=== PATIENT | female | born 1965 | race Caucasian/White ===

== ENCOUNTER 2017-02-17 11:28 | Emergency (ER) | payer MEDICARE ==
[~2017-02-17] VITALS: Ht 165.1 cm; Wt 58.2 kg
[~2017-02-17 11:28] MED LIST: OLAN5TAB2 PO
[2017-02-17 11:50] VITALS: BP 146/89
[2017-02-17] MEDS ORDERED: MIRT30 PO (11:59)
[2017-02-17] MEDS ORDERED: NICO-650 TD (11:59)
[2017-02-17] MEDS ORDERED: ARIP10TA8 PO (11:59)
[2017-02-17] MEDS ORDERED: GABA-531 PO (12:00)
[2017-02-17] MEDS ORDERED: ALBU8HFA IH (12:00)
[2017-02-17 12:36] LABS: EOSINOPHILS % (AUTO) 7.6 % (1.0-6.0); HEMATOCRIT 42.9 % (36-46); HEMOGLOBIN 14.5 g/dL (12.0-16.0); LYMPHOCYTES # (AUTO) 2.7 K/uL (1.0-4.8); LYMPHOCYTES % (AUTO) 27.4 % (22.0-44.0); MEAN CORPUSCULAR HEMOGLOBIN 29.4 pg (26.0-34.0); MEAN CORPUSCULAR HGB CONC 33.8 G/dL (31.0-37.0); MEAN CORPUSCULAR VOLUME 87 fL (80-100); MONOCYTES # (AUTO) 0.6 K/uL (0.1-1.0); MONOCYTES % (AUTO) 5.8 % (2.0-9.0); NEUTROPHILS # (AUTO) 5.8 K/uL (1.8-7.7); NEUTROPHILS % (AUTO) 58.2 % (40.0-70.0); PLATELET COUNT (AUTO) 334 K/uL (150-450); RED BLOOD CELL COUNT(AUTO) 4.93 MIL/uL (4.00-5.20); RED CELL DISTRIBUTION WIDTH 12.4 % (11.5-14.5); WHITE BLOOD COUNT (AUTO) 9.9 K/uL (4.5-11.0)
[2017-02-17 13:00] LABS: ALANINE AMINOTRANSFERASE 24 U/L (12-78); ALBUMIN 3.8 g/dL (3.4-5.0); ASPARTATE AMINOTRANSFERASE 20 U/L (15-37); BILIRUBIN,TOTAL 0.9 mg/dL (0.1-1.0); CALCIUM, TOTAL 8.8 mg/dL (8.8-10.5); CARBON DIOXIDE 28 mmol/L (22-29); CREATININE 0.84 mg/dL (0.60-1.30); GLOMERULAR FILTR. RATE CALC > 60 mL/min (>60); TOTAL PROTEIN, SERUM 7.1 g/dL (6.4-8.2); UREA NITROGEN, BLOOD 11 mg/dL (7-18)
[2017-02-17] MEDS ORDERED: ONDANSETRON HCL 4 MG TABLET PO ONE (13:00)
[2017-02-17 13:14] LABS: ANION GAP 10 mmol/L (8-16); CHLORIDE 103 mmol/L (98-107); POTASSIUM 3.7 mmol/L (3.5-5.1); SODIUM SERUM 141 mmol/L (136-145)
[2017-02-17] MEDS ORDERED: HALOPERIDOL 5 MG TABLET PO ONE (13:45)
[2017-02-17] MEDS ORDERED: LORazepam 2 MG TABLET PO ONE (13:45)
== END 2017-02-17 14:15 | disposition home or self-care (01) ==
LOC: EMS 11:29 → EEVIPCON 11:29 → EMS 14:15
DX: F29 Unspecified psychosis not due to a substance or known physiological condition (principal); F41.9 Anxiety disorder, unspecified; F15.10 Other stimulant abuse, uncomplicated; F32.9 Major depressive disorder, single episode, unspecified; F60.3 Borderline personality disorder; F17.210 Nicotine dependence, cigarettes, uncomplicated; F10.20 Alcohol dependence, uncomplicated
CPT/HCPCS: 36415; 80053; 80307; 85025; 99284; G0480; Q0162

== ENCOUNTER 2017-02-19 00:31 | Emergency (ER) | payer MEDICARE ==
[~2017-02-19] VITALS: Ht 162.6 cm; Wt 59.1 kg
[~2017-02-19 00:31] MED LIST changes: +ALBU8HFA IH; +ARIP10TA8 PO; +GABA-531 PO; +MIRT30 PO; +NICO-650 TD
[2017-02-19 00:36] VITALS: BP 140/89
== END 2017-02-19 03:30 | disposition left against medical advice (07) ==
LOC: EMS 00:33
DX: Z00.8 Encounter for other general examination (principal); F32.9 Major depressive disorder, single episode, unspecified; F17.210 Nicotine dependence, cigarettes, uncomplicated; F14.90 Cocaine use, unspecified, uncomplicated; F19.90 Other psychoactive substance use, unspecified, uncomplicated; Z53.21 Procedure and treatment not carried out due to patient leaving prior to being seen by health care provider

== ENCOUNTER 2017-02-19 04:15 | Emergency (ER) | payer MEDICARE ==
[~2017-02-19] VITALS: Ht 165.1 cm; Wt 63.0 kg
[2017-02-19] MEDS ORDERED: ALBUTEROL SULFATE 2.5 MG/0.5 ML NEB SOLUTION NEB ONE (05:15)
[2017-02-19 05:50] VITALS: BP 129/67
== END 2017-02-19 06:20 | disposition home or self-care (01) ==
LOC: EMS 04:16
DX: R06.2 Wheezing (principal); F17.200 Nicotine dependence, unspecified, uncomplicated; F15.10 Other stimulant abuse, uncomplicated; F14.10 Cocaine abuse, uncomplicated; F32.9 Major depressive disorder, single episode, unspecified; F60.3 Borderline personality disorder
CPT/HCPCS: 94640; 99283

== ENCOUNTER 2017-02-22 11:46 | Emergency (ER) | payer MEDICARE ==
[~2017-02-22] VITALS: Ht 160 cm; Wt 60.5 kg
[2017-02-22 12:41] LABS: BASOPHILS # (AUTO) 0.03 K/uL (0.00-0.20); BASOPHILS % (AUTO) 0.4 % (0.0-2.0); EOSINOPHILS # (AUTO) 0.26 K/uL (0.00-0.70); EOSINOPHILS % (AUTO) 2.82 % (1.0-6.0); HEMATOCRIT 38.5 % (36-46); HEMOGLOBIN 13.2 g/dL (12.0-16.0); LYMPHOCYTES % (AUTO) 22.2 % (22.0-44.0); MEAN CORPUSCULAR HEMOGLOBIN 29.5 pg (26.0-34.0); MEAN CORPUSCULAR HGB CONC 34.2 G/dL (31.0-37.0); MEAN CORPUSCULAR VOLUME 86 fL (80-100); MONOCYTES # (AUTO) 0.3 K/uL (0.1-1.0); MONOCYTES % (AUTO) 3.7 % (2.0-9.0); NEUTROPHILS # (AUTO) 6.4 K/uL (1.8-7.7); PLATELET COUNT (AUTO) 337 K/uL (150-450); RED BLOOD CELL COUNT(AUTO) 4.47 MIL/uL (4.00-5.20); RED CELL DISTRIBUTION WIDTH 12.3 % (11.5-14.5); WHITE BLOOD COUNT (AUTO) 9.1 K/uL (4.5-11.0)
[2017-02-22 12:45] LABS: ANION GAP 10 mmol/L (8-16); CALCIUM, TOTAL 8.9 mg/dL (8.8-10.5); CARBON DIOXIDE 27 mmol/L (22-29); CHLORIDE 104 mmol/L (98-107); GLOMERULAR FILTR. RATE CALC > 60 mL/min (>60); POTASSIUM 3.5 mmol/L (3.5-5.1); SODIUM SERUM 141 mmol/L (136-145); UREA NITROGEN, BLOOD 6 mg/dL (7-18)
[2017-02-22 12:50] LABS: ALANINE AMINOTRANSFERASE 34 U/L (12-78); ALBUMIN 3.8 g/dL (3.4-5.0); ASPARTATE AMINOTRANSFERASE 35 U/L (15-37); BILIRUBIN,TOTAL 0.9 mg/dL (0.1-1.0); TOTAL PROTEIN, SERUM 7.2 g/dL (6.4-8.2)
[2017-02-22 14:41] VITALS: BP 131/87
== END 2017-02-22 14:42 | disposition home or self-care (01) ==
LOC: EMS 11:47
DX: F25.9 Schizoaffective disorder, unspecified (principal); F32.9 Major depressive disorder, single episode, unspecified; F19.90 Other psychoactive substance use, unspecified, uncomplicated; F14.90 Cocaine use, unspecified, uncomplicated; F17.210 Nicotine dependence, cigarettes, uncomplicated
CPT/HCPCS: 36415; 80053; 80307; 85025; 99285; G0480

== ENCOUNTER 2017-02-26 07:14 | Emergency (ER) | payer MEDICARE ==
[~2017-02-26] VITALS: Ht 157.5 cm; Wt 58.2 kg
[2017-02-26] MEDS ORDERED: 0.9% SODIUM CHLORIDE 5 ML NEB SOLUTION NEB ONE (07:27)
[2017-02-26] MEDS ORDERED: ALBUTEROL SULFATE 5 MG/ML 20 ML NEB SOLN [BULK] NEB ONE (07:30)
[2017-02-26] MEDS ORDERED: DEXAMETHASONE SOD PHOS 4 MG/ML 5 ML VIAL IM ONE (07:30)
[2017-02-26] MEDS ORDERED: IPRATROPIUM BROMIDE 0.5 MG/2.5 ML NEB SOLUTION NEB ONE (07:30)
[2017-02-26 09:11] VITALS: BP 130/56
== END 2017-02-26 09:12 | disposition home or self-care (01) ==
LOC: EMS 07:16
DX: J45.909 Unspecified asthma, uncomplicated (principal); F32.9 Major depressive disorder, single episode, unspecified; F41.9 Anxiety disorder, unspecified; F60.3 Borderline personality disorder; F17.210 Nicotine dependence, cigarettes, uncomplicated; F14.10 Cocaine abuse, uncomplicated; F15.10 Other stimulant abuse, uncomplicated; Z59.0 Homelessness
CPT/HCPCS: 94644; 96372; 99285; 99406; J1100

== ENCOUNTER 2017-03-26 14:02 | Inpatient (IN) | payer MEDICARE ==
[~2017-03-26] VITALS: Ht 162.6 cm; Wt 126.0 kg
[2017-03-26 14:42] LABS: BASOPHILS # (AUTO) 0.16 K/uL (0.00-0.20); BASOPHILS % (AUTO) 1.7 % (0.0-2.0); EOSINOPHILS # (AUTO) 0.82 K/uL (0.00-0.70); EOSINOPHILS % (AUTO) 8.32 % (1.0-6.0); HEMATOCRIT 43.7 % (36-46); HEMOGLOBIN 14.6 g/dL (12.0-16.0); LYMPHOCYTES # (AUTO) 2.2 K/uL (1.0-4.8); LYMPHOCYTES % (AUTO) 22.2 % (22.0-44.0); MEAN CORPUSCULAR HEMOGLOBIN 29.4 pg (26.0-34.0); MEAN CORPUSCULAR HGB CONC 33.5 G/dL (31.0-37.0); MEAN CORPUSCULAR VOLUME 88 fL (80-100); MONOCYTES # (AUTO) 0.6 K/uL (0.1-1.0); MONOCYTES % (AUTO) 6.3 % (2.0-9.0); NEUTROPHILS # (AUTO) 6.1 K/uL (1.8-7.7); NEUTROPHILS % (AUTO) 61.6 % (40.0-70.0); PLATELET COUNT (AUTO) 436 K/uL (150-450); RED BLOOD CELL COUNT(AUTO) 4.98 MIL/uL (4.00-5.20)
[2017-03-26] MEDS ORDERED: LORazepam 2 MG/ML VIAL IM ONE (14:45)
[2017-03-26] MEDS ORDERED: DiphenhydrAMINE HCL 50 MG/ML VIAL IM ONE (14:45)
[2017-03-26] MEDS ORDERED: HALOPERIDOL LACTATE 5 MG/ML VIAL IM ONE (14:45)
[2017-03-26 14:58] LABS: ALANINE AMINOTRANSFERASE 20 U/L (12-78); ALBUMIN 3.8 g/dL (3.4-5.0); ALKALINE PHOSPHATASE 118 U/L (46-116); ANION GAP 12 mmol/L (8-16); ASPARTATE AMINOTRANSFERASE 15 U/L (15-37); BILIRUBIN,TOTAL 0.9 mg/dL (0.1-1.0); CALCIUM, TOTAL 9.5 mg/dL (8.8-10.5); CHLORIDE 105 mmol/L (98-107); GLOMERULAR FILTR. RATE CALC > 60 mL/min (>60); GLUCOSE,RANDOM 113 mg/dL (70-110); POTASSIUM 3.8 mmol/L (3.5-5.1); SODIUM SERUM 143 mmol/L (136-145); TOTAL PROTEIN, SERUM 7.5 g/dL (6.4-8.2); UREA NITROGEN, BLOOD 12 mg/dL (7-18)
[2017-03-26 15:12] LABS: CARBON DIOXIDE 25 mmol/L (22-29)
[2017-03-26] MEDS ORDERED: MAG HYDROX/AL HYDROX/SIMETH ES 30 ML SUSPENSION UDCUP PO PRN (15:45)
[2017-03-26] MEDS ORDERED: MAGNESIUM HYDROXIDE SUSPENSION 30 ML UDCUP PO PRN (15:45)
[2017-03-26] MEDS ORDERED: LOPERAMIDE HCL 2 MG CAPSULE PO PRN (15:45)
[2017-03-26] MEDS ORDERED: ZOLPIDEM TARTRATE 10 MG TABLET PO PRN (15:45)
[2017-03-27 04:45] LABS: CHOL/HDL RATIO 2.5 (3.9-5.7); CHOLESTEROL 148 mg/dL (131-200); HDL CHOLESTEROL 59 mg/dL (40-60); LDL CHOL (CALC.) 75 mg/dL (0-130); TRIGLYCERIDES 71 mg/dL (15-150)
[2017-03-27 17:22] VITALS: BP 100/62
[2017-03-27 17:27] VITALS: BP 100/62
[2017-03-27] MEDS: LORazepam 2 MG TABLET PO PRN (17:59)
[2017-03-27] MEDS ORDERED: INFLUENZA VIRUS VACCINE QVS 2017-18 (3YR+)/PF 60 MCG/0.5 ML SYRINGE IM ONE (18:45)
[2017-03-28 04:05] VITALS: BP 100/66
[2017-03-28] MEDS: LORazepam 2 MG TABLET PO PRN ×2 (08:07→16:38)
[2017-03-28 08:30] VITALS: BP 126/71
[2017-03-28 08:35] LABS: CHOL/HDL RATIO 2.7 (3.9-5.7); FREE T4 (FREE THYROXINE) 0.83 ng/dL (0.76-1.46); THYROID STIMULATING HORMONE 0.41 uIU/mL (0.36-3.74)
[2017-03-28 08:40] LABS: HEMOGLOBIN A1C 5.6 % (4.5-6.2)
[2017-03-28] MEDS: NICOTINE 14 MG/24 HOUR PATCH TD SCH (09:13)
[2017-03-28] MEDS: ARIPiprazole 10 MG TABLET PO SCH (10:57)
[2017-03-28] MEDS: GABAPENTIN 300 MG CAPSULE PO SCH ×2 (13:06→16:37)
[2017-03-28] MEDS: HALOPERIDOL 5 MG TABLET PO PRN (16:38)
[2017-03-28] MEDS: MIRTAZAPINE 15 MG TABLET PO SCH (20:57)
[2017-03-29] MEDS: GABAPENTIN 300 MG CAPSULE PO SCH ×3 (08:36→16:25)
[2017-03-29] MEDS: ARIPiprazole 10 MG TABLET PO SCH (08:36)
[2017-03-29] MEDS: NICOTINE 14 MG/24 HOUR PATCH TD SCH (08:36)
[2017-03-29 16:00] VITALS: BP 111/72
[2017-03-29] MEDS: MIRTAZAPINE 15 MG TABLET PO SCH (20:10)
[2017-03-30 06:28] VITALS: BP 108/66
[2017-03-30 08:00] VITALS: BP 110/70
[2017-03-30] MEDS: GABAPENTIN 300 MG CAPSULE PO SCH ×3 (08:57→16:49)
[2017-03-30] MEDS: ARIPiprazole 15 MG TABLET PO SCH (08:57)
[2017-03-30] MEDS: NICOTINE 14 MG/24 HOUR PATCH TD SCH (09:03)
[2017-03-30 16:14] VITALS: BP 125/75
[2017-03-30] MEDS: MIRTAZAPINE 15 MG TABLET PO SCH (20:21)
[2017-03-31 05:35] VITALS: BP 121/62
[2017-03-31] MEDS: ARIPiprazole 15 MG TABLET PO SCH (08:22)
[2017-03-31] MEDS: NICOTINE 14 MG/24 HOUR PATCH TD SCH (08:22)
[2017-03-31] MEDS: GABAPENTIN 300 MG CAPSULE PO SCH ×3 (08:22→16:38)
[2017-03-31 08:30] VITALS: BP 119/73
[2017-03-31] MEDS ORDERED: ALBUTEROL SULFATE HFA 90 MCG/PUFF 8 GM INHALER IH PRN (09:30)
[2017-03-31] MEDS: LORazepam 2 MG TABLET PO PRN (10:18)
[2017-03-31 16:19] VITALS: BP 112/68
[2017-03-31] MEDS: MIRTAZAPINE 15 MG TABLET PO SCH (20:22)
[2017-04-01 06:36] VITALS: BP 122/77
[2017-04-01] MEDS: GABAPENTIN 300 MG CAPSULE PO SCH ×3 (08:37→16:30)
[2017-04-01] MEDS: ARIPiprazole 15 MG TABLET PO SCH (08:37)
[2017-04-01] MEDS: NICOTINE 14 MG/24 HOUR PATCH TD SCH (08:37)
[2017-04-01] MEDS: ACETAMINOPHEN 325 MG TABLET PO PRN ×2 (13:18→19:27)
[2017-04-01 13:19] VITALS: BP 120/70
[2017-04-01 16:29] VITALS: BP 113/65
[2017-04-01] MEDS: HALOPERIDOL 5 MG TABLET PO PRN (19:26)
[2017-04-01 19:27] VITALS: BP 120/70
[2017-04-01] MEDS: MIRTAZAPINE 15 MG TABLET PO SCH (20:23)
[2017-04-02 05:51] VITALS: BP 112/70
[2017-04-02] MEDS: ACETAMINOPHEN 325 MG TABLET PO PRN (05:54)
[2017-04-02 08:10] VITALS: BP 120/76
[2017-04-02] MEDS: ARIPiprazole 15 MG TABLET PO SCH (08:28)
[2017-04-02] MEDS: NICOTINE 14 MG/24 HOUR PATCH TD SCH (08:28)
[2017-04-02] MEDS: GABAPENTIN 300 MG CAPSULE PO SCH ×3 (08:28→16:48)
[2017-04-02 08:51] LABS: AMPHET/METH SCREEN,URINE NEGATIVE (NEGATIVE); BARBITURATE SCREEN, URINE NEGATIVE (NEGATIVE); BENZODIAZEPINES SCREEN,URINE NEGATIVE (NEGATIVE); CANNABINOID SCREEN,URINE NEGATIVE (NEGATIVE); COCAINE SCREEN,URINE NEGATIVE (NEGATIVE); METHADONE SCREEN, URINE NEGATIVE (NEGATIVE); OPIATE SCREEN,URINE NEGATIVE (NEGATIVE); PHENCYCLIDINE SCREEN,URINE NEGATIVE (NEGATIVE)
[2017-04-02 10:19] LABS: APPEARANCE,URINE CLEAR (CLEAR); BILIRUBIN,URINE NEGATIVE (NEGATIVE); GLUCOSE, URINE (UA) NEGATIVE (NEGATIVE); KETONES,URINE NEGATIVE (NEGATIVE); LEUKOCYTE ESTERASE ,URINE NEGATIVE (NEGATIVE); NITRATE,URINE NEGATIVE (NEGATIVE); OCCULT BLOOD,URINE NEGATIVE (NEGATIVE); PH,URINE 5.5 (5.0-8.0); PROTEIN,URINE NEGATIVE (NEGATIVE); UROBILINOGEN,URINE 0.2 mg/dL (<=1.0)
[2017-04-02] MEDS: LORazepam 2 MG TABLET PO PRN (12:41)
[2017-04-02 16:10] VITALS: BP 120/84
[2017-04-02] MEDS: HALOPERIDOL 5 MG TABLET PO PRN (20:09)
[2017-04-02] MEDS: MIRTAZAPINE 15 MG TABLET PO SCH (20:09)
[2017-04-03 06:32] VITALS: BP 119/68
[2017-04-03 08:19] VITALS: BP 107/57
[2017-04-03] MEDS: GABAPENTIN 300 MG CAPSULE PO SCH ×3 (08:55→16:19)
[2017-04-03] MEDS: ARIPiprazole 15 MG TABLET PO SCH (08:55)
[2017-04-03] MEDS: NICOTINE 14 MG/24 HOUR PATCH TD SCH (08:55)
[2017-04-03] MEDS ORDERED: BISACODYL 5 MG EC TABLET PO PRN (10:00)
[2017-04-03 16:11] VITALS: BP 123/88
[2017-04-03] MEDS: MIRTAZAPINE 15 MG TABLET PO SCH (20:10)
[2017-04-04 06:59] VITALS: BP 110/72
[2017-04-04] MEDS: GABAPENTIN 300 MG CAPSULE PO SCH ×3 (08:26→16:10)
[2017-04-04] MEDS: ARIPiprazole 15 MG TABLET PO SCH (08:26)
[2017-04-04 08:27] VITALS: BP 111/77
[2017-04-04] MEDS: NICOTINE 14 MG/24 HOUR PATCH TD SCH (08:27)
[2017-04-04] MEDS: LORazepam 2 MG TABLET PO PRN (09:01)
[2017-04-04 09:52] VITALS: BP 116/75
[2017-04-04] MEDS ORDERED: PERMETHRIN 1% 60 ML LOTION TP ONE (13:00)
[2017-04-04] MEDS: MIRTAZAPINE 15 MG TABLET PO SCH (20:07)
[2017-04-05 07:08] VITALS: BP 115/72
[2017-04-05] MEDS: NICOTINE 14 MG/24 HOUR PATCH TD SCH (09:14)
[2017-04-05] MEDS: ARIPiprazole 15 MG TABLET PO SCH (09:14)
[2017-04-05] MEDS: GABAPENTIN 300 MG CAPSULE PO SCH ×3 (09:14→16:01)
[2017-04-05] MEDS ORDERED: IVERMECTIN 3 MG TABLET PO ONE (10:30)
[2017-04-05] MEDS: LORazepam 2 MG TABLET PO PRN (10:39)
[2017-04-05] MEDS: HALOPERIDOL 5 MG TABLET PO PRN (20:02)
[2017-04-05] MEDS: MIRTAZAPINE 15 MG TABLET PO SCH (20:02)
[2017-04-06] MEDS: HALOPERIDOL 5 MG TABLET PO PRN (08:12)
[2017-04-06] MEDS: ARIPiprazole 15 MG TABLET PO SCH (08:12)
[2017-04-06] MEDS: NICOTINE 14 MG/24 HOUR PATCH TD SCH (08:12)
[2017-04-06] MEDS: GABAPENTIN 300 MG CAPSULE PO SCH ×3 (08:12→16:15)
[2017-04-06] MEDS: LORazepam 2 MG TABLET PO PRN ×2 (08:12→16:57)
[2017-04-06] MEDS: MIRTAZAPINE 15 MG TABLET PO SCH (20:10)
[2017-04-06] MEDS: ZOLPIDEM TARTRATE 10 MG TABLET PO PRN (20:10)
[2017-04-07 08:11] VITALS: BP 113/53
[2017-04-07] MEDS: ARIPiprazole 15 MG TABLET PO SCH (08:36)
[2017-04-07] MEDS: GABAPENTIN 300 MG CAPSULE PO SCH ×3 (08:36→16:48)
[2017-04-07] MEDS: NICOTINE 14 MG/24 HOUR PATCH TD SCH (08:37)
[2017-04-07] MEDS ORDERED: HALOPERIDOL LACTATE 5 MG/ML VIAL IM ONE (09:15)
[2017-04-07] MEDS ORDERED: DiphenhydrAMINE HCL 50 MG/ML VIAL IM ONE (09:15)
[2017-04-07] MEDS ORDERED: LORazepam 2 MG/ML VIAL IM ONE (09:15)
[2017-04-07] MEDS ORDERED: LORazepam 2 MG/ML VIAL ONE (09:16)
[2017-04-07] MEDS ORDERED: HALOPERIDOL LACTATE 5 MG/ML VIAL ONE (09:16)
[2017-04-07] MEDS ORDERED: DiphenhydrAMINE HCL 50 MG/ML VIAL ONE (09:16)
[2017-04-07] MEDS: HALOPERIDOL 5 MG TABLET PO PRN (16:48)
[2017-04-07] MEDS: LORazepam 2 MG TABLET PO PRN (16:48)
[2017-04-07] MEDS: MIRTAZAPINE 15 MG TABLET PO SCH (20:38)
[2017-04-08] MEDS: ARIPiprazole 15 MG TABLET PO SCH (08:01)
[2017-04-08] MEDS: NICOTINE 14 MG/24 HOUR PATCH TD SCH (08:01)
[2017-04-08] MEDS: GABAPENTIN 300 MG CAPSULE PO SCH ×3 (08:01→16:38)
[2017-04-08 08:35] VITALS: BP 110/70
[2017-04-08 16:00] VITALS: BP 141/71
[2017-04-08] MEDS: LORazepam 2 MG TABLET PO PRN (16:38)
[2017-04-08] MEDS: HALOPERIDOL 5 MG TABLET PO PRN (16:38)
[2017-04-08] MEDS: MIRTAZAPINE 15 MG TABLET PO SCH (20:10)
[2017-04-08] MEDS: ZOLPIDEM TARTRATE 10 MG TABLET PO PRN (20:10)
[2017-04-09] MEDS: NICOTINE 14 MG/24 HOUR PATCH TD SCH (08:25)
[2017-04-09] MEDS: LORazepam 2 MG TABLET PO PRN ×2 (08:25→16:07)
[2017-04-09] MEDS: ARIPiprazole 15 MG TABLET PO SCH (08:25)
[2017-04-09] MEDS: HALOPERIDOL 5 MG TABLET PO PRN ×2 (08:25→16:23)
[2017-04-09] MEDS: GABAPENTIN 300 MG CAPSULE PO SCH ×3 (08:25→16:07)
[2017-04-09 09:03] VITALS: BP 110/70
[2017-04-09 16:29] VITALS: BP 107/65
[2017-04-09] MEDS: MIRTAZAPINE 15 MG TABLET PO SCH (20:00)
[2017-04-09] MEDS: ZOLPIDEM TARTRATE 10 MG TABLET PO PRN (21:01)
[2017-04-10 06:55] VITALS: BP 100/62
[2017-04-10] MEDS: LORazepam 2 MG TABLET PO PRN (08:12)
[2017-04-10] MEDS: ARIPiprazole 15 MG TABLET PO SCH (08:13)
[2017-04-10] MEDS: NICOTINE 14 MG/24 HOUR PATCH TD SCH (08:13)
[2017-04-10 08:17] VITALS: BP 115/72
[2017-04-10] MEDS ORDERED: GABAPENTIN 300 MG CAPSULE PO SCH (09:00)
== END 2017-04-10 10:15 | disposition home or self-care (01) | DRG 885 ==
LOC: EMS 14:04 → B3A 03-27 16:07
PROVIDERS: ADMIT Psychiatry & Neurology Child & Adolescent Psychiatry; ATTEND Psychiatry & Neurology Child & Adolescent Psychiatry
DX: F25.0 Schizoaffective disorder, bipolar type (principal); R45.851 Suicidal ideations; G62.9 Polyneuropathy, unspecified; F10.20 Alcohol dependence, uncomplicated; B85.2 Pediculosis, unspecified; F10.21 Alcohol dependence, in remission; F19.20 Other psychoactive substance dependence, uncomplicated; F60.3 Borderline personality disorder; J44.9 Chronic obstructive pulmonary disease, unspecified; F14.90 Cocaine use, unspecified, uncomplicated; F17.210 Nicotine dependence, cigarettes, uncomplicated; F12.90 Cannabis use, unspecified, uncomplicated; F15.90 Other stimulant use, unspecified, uncomplicated; R73.9 Hyperglycemia, unspecified; K59.00 Constipation, unspecified; F41.9 Anxiety disorder, unspecified; L29.9 Pruritus, unspecified; Z28.21 Immunization not carried out because of patient refusal; Z79.899 Other long term (current) drug therapy; Z59.0 Homelessness; Z82.49 Family history of ischemic heart disease and other diseases of the circulatory system
CPT/HCPCS: 83036; 84439; 84443; 87081; 96372; 99285; G0480; J1200; J1630; J2060; J3535

== ENCOUNTER 2017-04-15 09:44 | Inpatient (IN) | payer MEDICARE ==
[~2017-04-15] VITALS: Ht 152.4 cm; Wt 59.5 kg
[~2017-04-15 09:44] MED LIST changes: -ALBU8HFA IH; -NICO-650 TD; -OLAN5TAB2 PO
[2017-04-15 10:11] LABS: BASOPHILS # (AUTO) 0.02 K/uL (0.00-0.20); BASOPHILS % (AUTO) 0.2 % (0.0-2.0); EOSINOPHILS % (AUTO) 5.29 % (1.0-6.0); HEMOGLOBIN 13.5 g/dL (12.0-16.0); LYMPHOCYTES # (AUTO) 2.6 K/uL (1.0-4.8); LYMPHOCYTES % (AUTO) 22.7 % (22.0-44.0); MEAN CORPUSCULAR HEMOGLOBIN 29.3 pg (26.0-34.0); MEAN CORPUSCULAR HGB CONC 33.7 G/dL (31.0-37.0); MEAN CORPUSCULAR VOLUME 87 fL (80-100); MONOCYTES # (AUTO) 0.5 K/uL (0.1-1.0); MONOCYTES % (AUTO) 4.8 % (2.0-9.0); NEUTROPHILS # (AUTO) 7.6 K/uL (1.8-7.7); NEUTROPHILS % (AUTO) 67.1 % (40.0-70.0); PLATELET COUNT (AUTO) 345 K/uL (150-450); RED BLOOD CELL COUNT(AUTO) 4.59 MIL/uL (4.00-5.20); RED CELL DISTRIBUTION WIDTH 12.3 % (11.5-14.5); WHITE BLOOD COUNT (AUTO) 11.3 K/uL (4.5-11.0)
[2017-04-15 10:24] LABS: ANION GAP 4 mmol/L (8-16); CALCIUM, TOTAL 8.8 mg/dL (8.8-10.5); CARBON DIOXIDE 29 mmol/L (22-29); CHLORIDE 104 mmol/L (98-107); CREATININE 0.76 mg/dL (0.60-1.30); GLOMERULAR FILTR. RATE CALC > 60 mL/min (>60); POTASSIUM 3.6 mmol/L (3.5-5.1); SODIUM SERUM 137 mmol/L (136-145); UREA NITROGEN, BLOOD 17 mg/dL (7-18)
[2017-04-15 10:29] LABS: ALANINE AMINOTRANSFERASE 34 U/L (12-78); ASPARTATE AMINOTRANSFERASE 20 U/L (15-37); BILIRUBIN,TOTAL 1.5 mg/dL (0.1-1.0); TOTAL PROTEIN, SERUM 7.2 g/dL (6.4-8.2)
[2017-04-15] MEDS ORDERED: DiphenhydrAMINE HCL 50 MG/ML VIAL IM ONE (10:45)
[2017-04-15] MEDS ORDERED: HALOPERIDOL LACTATE 5 MG/ML VIAL IM ONE (10:45)
[2017-04-15] MEDS ORDERED: LORazepam 2 MG/ML VIAL IM ONE (10:45)
[2017-04-15] MEDS ORDERED: ARIP15TA2 PO (11:06)
[2017-04-15] MEDS ORDERED: ZOLPIDEM TARTRATE 10 MG TABLET PO PRN (11:15)
[2017-04-15 12:57] LABS: CHOL/HDL RATIO 2.8 (3.9-5.7); THYROID STIMULATING HORMONE 0.68 uIU/mL (0.36-3.74)
[2017-04-15] MEDS ORDERED: PERMETHRIN 1% 60 ML LOTION TP ONE ×2 (13:15→18:00)
[2017-04-15] MEDS: GABAPENTIN 300 MG CAPSULE PO SCH (17:00)
[2017-04-15] MEDS ORDERED: PNEUMOCOCCAL VACCINE POLYVALENT 0.5 ML VIAL [PPSV23] IM ONE (18:15)
[2017-04-15] MEDS ORDERED: INFLUENZA VIRUS VACCINE QVS 2017-18 (3YR+)/PF 60 MCG/0.5 ML SYRINGE IM ONE (18:15)
[2017-04-15] MEDS: MIRTAZAPINE 15 MG TABLET PO SCH (21:00)
[2017-04-16 04:43] VITALS: BP 117/67
[2017-04-16] MEDS: LORazepam 2 MG TABLET PO PRN ×2 (05:49→16:54)
[2017-04-16] MEDS: HALOPERIDOL 5 MG TABLET PO PRN ×2 (05:49→16:54)
[2017-04-16] MEDS ORDERED: DiphenhydrAMINE HCL 50 MG/ML VIAL IM ONE (07:15)
[2017-04-16] MEDS ORDERED: LORazepam 2 MG/ML VIAL IM ONE (07:15)
[2017-04-16] MEDS ORDERED: HALOPERIDOL LACTATE 5 MG/ML VIAL IM ONE (07:15)
[2017-04-16] MEDS: GABAPENTIN 300 MG CAPSULE PO SCH ×3 (08:34→16:54)
[2017-04-16] MEDS: ARIPiprazole 15 MG TABLET PO SCH (08:34)
[2017-04-16] MEDS: LITHIUM CARBONATE 300 MG CAPSULE PO SCH (21:00)
[2017-04-16] MEDS: MIRTAZAPINE 15 MG TABLET PO SCH (21:00)
[2017-04-17 02:28] VITALS: BP 116/67
[2017-04-17] MEDS: HALOPERIDOL 5 MG TABLET PO PRN (08:09)
[2017-04-17] MEDS: LORazepam 2 MG TABLET PO PRN ×2 (08:09→12:42)
[2017-04-17] MEDS: ARIPiprazole 15 MG TABLET PO SCH (08:09)
[2017-04-17] MEDS: GABAPENTIN 300 MG CAPSULE PO SCH ×3 (08:09→16:14)
[2017-04-17] MEDS: NICOTINE 21 MG/24 HOUR PATCH TD SCH (08:31)
[2017-04-17 16:08] VITALS: BP 128/88
[2017-04-17] MEDS: MIRTAZAPINE 15 MG TABLET PO SCH (20:36)
[2017-04-17] MEDS: LITHIUM CARBONATE 300 MG CAPSULE PO SCH (20:36)
[2017-04-18] MEDS: ARIPiprazole 15 MG TABLET PO SCH (08:56)
[2017-04-18] MEDS: NICOTINE 21 MG/24 HOUR PATCH TD SCH (08:56)
[2017-04-18] MEDS: GABAPENTIN 300 MG CAPSULE PO SCH (08:57)
[2017-04-18] MEDS ORDERED: LITH300C3 PO (10:30)
== END 2017-04-18 11:45 | disposition home or self-care (01) | DRG 885 ==
LOC: EMS 09:44 → B3A 15:51
PROVIDERS: ADMIT Psychiatry & Neurology Child & Adolescent Psychiatry; ATTEND Psychiatry & Neurology Child & Adolescent Psychiatry
DX: F25.0 Schizoaffective disorder, bipolar type (principal); R45.851 Suicidal ideations; E86.0 Dehydration; D72.829 Elevated white blood cell count, unspecified; F60.3 Borderline personality disorder; J44.9 Chronic obstructive pulmonary disease, unspecified; F17.210 Nicotine dependence, cigarettes, uncomplicated; F10.20 Alcohol dependence, uncomplicated; F14.90 Cocaine use, unspecified, uncomplicated; F41.9 Anxiety disorder, unspecified; F12.90 Cannabis use, unspecified, uncomplicated; F15.10 Other stimulant abuse, uncomplicated; Z91.19 Patient's noncompliance with other medical treatment and regimen; Z59.0 Homelessness
CPT/HCPCS: 84439; 84443; 87081; 96372; 99285; G0480; J1200; J1630; J2060